=== PATIENT | female | born 1945 | race African-American/Black ===

== ENCOUNTER 2023-10-26 12:59 | Inpatient (IN) | payer MEDICARE, MEDICAID ==
[~2023-10-26] VITALS: Ht 157.5 cm; Wt 82.3 kg
[2023-10-26] MEDS: SODIUM CHLORIDE 0.9% 500 ML IV ONE (13:15)
[2023-10-26 17:26] LABS: Basophils # (auto) 0 10 ^3/uL (0-0.2); Eosinophils # (auto) 0 10 ^3/uL (0-0.8); Hemoglobin 10.6 g/dL (12.2-16.2); Monocytes # (auto) 0.2 10 ^3/uL (0-1.3); Neutrophils # (auto) 0.6 10 ^3/uL (1.6-8.6)
[2023-10-26 17:28] LABS: Basophils % (auto) 1.6 % (0.0-2.0); Eosinophils % (auto) 1.1 % (0.0-7.0); Hematocrit 31.5 % (36.0-46.0); Mean Corpuscular Hgb Conc. 33.7 g/dL (32.0-36.0); Mean Corpuscular Volume 106.6 fL (80.0-100.0); Monocytes % (auto) 10.9 % (0.0-12.0); Neutrophils % (auto) 32.4 % (37.0-80.0); Nucleated Red Blood Cells % 0.3 %; Platelet Count (auto) 101 10^3/uL (140-450); Red Blood Cells 2.96 10^6/uL (4.0-5.20); Red Cell Distribution Width 16.2 % (11.8-14.3); White Blood Cell 1.9 10^3/uL (4.4-10.8)
[2023-10-26 17:43] LABS: Alanine Aminotransferase 50 U/L (7-40); Albumin 4.3 g/dL (3.2-4.8); Alkaline Phosphatase 81 U/L (46-116); Anion Gap 9 (5-15); Aspartate Aminotransferase 44 U/L (13-40); BUN/Creatinine Ratio 10.1 (10.0-20.0); Blood Urea Nitrogen 8 mg/dL (9-23); Calcium 9.4 mg/dL (8.7-10.4); Carbon Dioxide 26 mmol/L (20-30); Chloride 108 mmol/L (98-107); Glucose 96 mg/dL (74-106); Potassium 3.5 mmol/L (3.5-5.1); Sodium 143 mmol/L (136-145)
[2023-10-26 17:44] LABS: Bilirubin, Total 0.9 mg/dL (0.2-1.0); Total Protein 6.8 g/dL (5.7-8.2)
[2023-10-26 18:19] VITALS: PULSE 80; RESP 14; O2SAT 99
[2023-10-26] MEDS: HYDROcodone-ACET 5/325MG TAB PO ONE (19:00)
[2023-10-26] MEDS: fentaNYL CITRATE 100 MCG/2 ML VL IV ONE (19:00)
[2023-10-26 19:10] VITALS: PULSE 76; RESP 19; O2SAT 92
[2023-10-26] MEDS: MORPHINE SULFATE INJ 2 MG/ml SYRG IV ONE (21:00)
[2023-10-26] MEDS: LACTATED RINGER'S 1,000 ML IV ONE (22:00)
[2023-10-26] MEDS ORDERED: ACETAMINOPHEN 325 MG TAB PO PRN (22:00)
[2023-10-26] MEDS ORDERED: DOCUSATE SOD 100 MG CAP PO PRN (22:00)
[2023-10-26] MEDS ORDERED: HYDROcodone-ACET 5/325MG TAB PO PRN (22:00)
[2023-10-26] MEDS ORDERED: HYDROmorphone HCL 2 MG/ML VL/or syr IV PRN (22:00)
[2023-10-26] MEDS: TAMSULOSIN HYDROCHLORIDE 0.4 MG CAP PO SCH (22:00)
[2023-10-26] MEDS: SODIUM CHLOR 0.9% PF (SALINE LOCK) 10ML VIAL/SYR IV SCH (22:00)
[2023-10-26 23:13] LABS: % Iron Saturation 38.5 % (15-50)
[2023-10-26 23:15] LABS: Ferritin 64.1 ng/mL (10-291)
[2023-10-27 04:15] LABS: Platelet Count (auto) 91 10^3/uL (140-450); White Blood Cell 2.1 10^3/uL (4.4-10.8)
[2023-10-27 04:18] LABS: Hemoglobin 10.7 g/dL (12.2-16.2); Mean Corpuscular Hemoglobin 36.4 pg (28.0-32.0); Mean Corpuscular Hgb Conc. 34.5 g/dL (32.0-36.0); Mean Corpuscular Volume 105.6 fL (80.0-100.0); Red Blood Cells 2.94 10^6/uL (4.0-5.20); Red Cell Distribution Width 15.9 % (11.8-14.3)
[2023-10-27 04:29] LABS: Band Neutrophils % (manual) 0; Basophils % (manual) 0 (0.0-2.0); Blast Cells 0; Eosinophils % (manual) 0 (0-7); Metamyelocytes % 0; Myelocytes % 0; Promyelocytes % 0; Reactive Lymphocytes 0
[2023-10-27 04:42] LABS: Alanine Aminotransferase 42 U/L (7-40); Alkaline Phosphatase 75 U/L (46-116); Anion Gap 9 (5-15); Aspartate Aminotransferase 40 U/L (13-40); Bilirubin, Total 1.1 mg/dL (0.2-1.0); Blood Urea Nitrogen 6 mg/dL (9-23); Calcium 9.4 mg/dL (8.7-10.4); Carbon Dioxide 25 mmol/L (20-30); Chloride 110 mmol/L (98-107); Glucose 88 mg/dL (74-106); Potassium 3.4 mmol/L (3.5-5.1); Sodium 144 mmol/L (136-145); Total Protein 6.6 g/dL (5.7-8.2)
[2023-10-27] MEDS: traMADol HCL 50 MG TAB PO ONE (05:15)
[2023-10-27 05:56] LABS: Large Platelets FEW; Lymphocytes % (manual) 61 (10.0-50.0); Macrocytosis Moderate; Monocytes % (manual) 11 (0-12); Platelet Estimate Decreased
[2023-10-27 05:57] LABS: Anisocytosis Slight; Ovalocytes FEW
[2023-10-27 07:30] VITALS: PULSE 60; RESP 16; O2SAT 98
[2023-10-27] MEDS: MORPHINE SULFATE INJ 2 MG/ml SYRG IV ONE (08:00)
[2023-10-27] MEDS ORDERED: KETOROLAC TROMETH 30 MG/ML 1ML VIAL IV PRN (09:00)
[2023-10-27] MEDS: LACTATED RINGER'S 1,000 ML IV SCH ×2 (09:15→19:00)
[2023-10-27] MEDS: ENOXAPARIN SOD 40 MG/0.4 ML SYRINGE SC SCH (10:00)
[2023-10-27] MEDS: LISINOPRIL 5 MG TAB PO SCH (10:00)
[2023-10-27] MEDS: POTASSIUM CHL 20 Meq TABLET PO SCH (10:00)
[2023-10-27] MEDS: oxyCODONE HCL 5MG TAB PO PRN (13:05)
[2023-10-27 13:46] LABS: Urine Bacteria None Seen /hpf (None Seen)
[2023-10-27 14:18] LABS: Urine Blood Negative /uL (Negative); Urine Clarity Clear (Clear); Urine Color Light-Yellow (Yellow); Urine Protein, UAD Negative (Negative); Urine Specific Gravity 1.013 (1.001-1.035); Urine Urobilinogen 2 mg/dL (Negative); Urine WBC <1 /hpf (0 - 5); Urine pH 7.5 (5.0-9.0)
[2023-10-27 14:49] LABS: Amphetamine Screen, Urine Neg (NEGATIVE); Barbiturate Scree,Urine Neg (NEGATIVE); Benzodiazephine Screen, Urine Neg (NEGATIVE)
[2023-10-27 14:50] LABS: Cocaine Screen, Urine Neg (NEGATIVE)
[2023-10-27 14:51] LABS: Cannabinoid Screen, Urine Neg (NEGATIVE); Opiate Scree,Urine Neg (NEGATIVE); Phencyclidine Screen, Urine Neg (NEGATIVE)
[2023-10-27 15:16] LABS: Rapid Influenza A Negative (Negative); Rapid Influenza B Negative (Negative)
[2023-10-27 15:17] LABS: COVID19 ANTIGEN SOFIA FIA NEGATIVE (NEGATIVE)
[2023-10-27 15:28] LABS: Folate (Folic Acid) 13.96 ng/mL (>5.38)
[2023-10-27 17:00] VITALS: BP 117/70; PULSE 60; RESP 16; TEMP 98.6; O2SAT 98
[2023-10-27 17:06] VITALS: BP 133/59; PULSE 68; RESP 16; TEMP 97.7; O2SAT 95
[2023-10-27] MEDS: ERGOCALCIFEROL 50,000 UNIT(1.25MG) CAP PO SCH (20:30)
[2023-10-27] MEDS: TAMSULOSIN HYDROCHLORIDE 0.4 MG CAP PO ONE (21:00)
[2023-10-27 22:00] VITALS: BP 133/49; PULSE 69; RESP 18; TEMP 99.2; O2SAT 98
[2023-10-27] MEDS: PANTOPRAZOLE 40 MG/10 ML VIAL INJ IV SCH (22:00)
[2023-10-28 01:00] VITALS: BP 107/39; PULSE 82; RESP 17; TEMP 99; O2SAT 95
[2023-10-28 05:00] VITALS: BP 113/47; PULSE 78; RESP 19; TEMP 97; O2SAT 98
[2023-10-28 07:23] LABS: Red Cell Distribution Width 15.7 % (11.8-14.3)
[2023-10-28 07:26] LABS: Hemoglobin 10.7 g/dL (12.2-16.2); Mean Corpuscular Hemoglobin 36.1 pg (28.0-32.0); Mean Corpuscular Hgb Conc. 34.4 g/dL (32.0-36.0); Mean Corpuscular Volume 104.7 fL (80.0-100.0); Platelet Count (auto) 89 10^3/uL (140-450); Red Blood Cells 2.96 10^6/uL (4.0-5.20); White Blood Cell 2.1 10^3/uL (4.4-10.8)
[2023-10-28 07:29] LABS: Band Neutrophils % (manual) 0; Basophils % (manual) 0 (0.0-2.0); Blast Cells 0; Eosinophils % (manual) 0 (0-7); Metamyelocytes % 0; Myelocytes % 0; Promyelocytes % 0; Reactive Lymphocytes 0
[2023-10-28 07:35] LABS: INR 1.16 (0.9-1.15); Partial Thromboplastin Time 30.5 SEC (24.5-34.5); Prothrombin Time 12.2 sec (9.3-11.8)
[2023-10-28 07:36] LABS: Alanine Aminotransferase 35 U/L (7-40); Albumin 3.9 g/dL (3.2-4.8); Alkaline Phosphatase 72 U/L (46-116); Anion Gap 6 (5-15); Aspartate Aminotransferase 35 U/L (13-40); BUN/Creatinine Ratio 11.1 (10.0-20.0); Bilirubin, Total 0.9 mg/dL (0.2-1.0); Blood Urea Nitrogen 9 mg/dL (9-23); Calcium 9.2 mg/dL (8.7-10.4); Carbon Dioxide 26 mmol/L (20-30); Chloride 108 mmol/L (98-107); Glucose 99 mg/dL (74-106); Potassium 3.3 mmol/L (3.5-5.1); Sodium 140 mmol/L (136-145); Total Protein 6.4 g/dL (5.7-8.2); Uric Acid 6.6 mg/dL (3.1-7.8)
[2023-10-28 08:06] LABS: Lymphocytes % (manual) 64 (10.0-50.0); Monocytes % (manual) 7 (0-12)
[2023-10-28 08:07] LABS: Anisocytosis Slight; Macrocytosis Slight; Platelet Estimate Decreased
[2023-10-28] MEDS: CYANOCOBALAMIN 500 MCG TAB PO SCH (10:54)
[2023-10-28] MEDS: POTASSIUM CHL 20 Meq TABLET PO ONE (10:54)
[2023-10-28 12:53] VITALS: BP 119/77; PULSE 73; RESP 19; TEMP 97.8; O2SAT 100
[2023-10-28 17:26] VITALS: BP 110/51; PULSE 76; RESP 19; TEMP 97.9; O2SAT 93
[2023-10-28] MEDS: TAMSULOSIN HYDROCHLORIDE 0.4 MG CAP PO SCH (18:20)
[2023-10-28 20:00] VITALS: RESP 18
[2023-10-28] MEDS: ONDANSETRON HCL 4 MG/2 ML VIAL IV PRN (20:12)
[2023-10-28] MEDS: oxyCODONE HCL 5MG TAB PO PRN (20:14)
[2023-10-28 22:00] VITALS: BP 116/60; PULSE 82; RESP 15; TEMP 99.2; O2SAT 100
[2023-10-29] VITALS (7 sets, daily range): BP systolic 92–148; BP diastolic 49–98; PULSE 65–104; RESP 16–19; TEMP 97.5–98.7; O2SAT 93–100
[2023-10-29 10:07] LABS: Hemoglobin 10.5 g/dL (12.2-16.2); Mean Corpuscular Hemoglobin 36.3 pg (28.0-32.0)
[2023-10-29 10:11] LABS: Hematocrit 30.9 % (36.0-46.0); Mean Corpuscular Hgb Conc. 34.1 g/dL (32.0-36.0); Mean Corpuscular Volume 106.5 fL (80.0-100.0); Platelet Count (auto) 77 10^3/uL (140-450); Red Cell Distribution Width 15.8 % (11.8-14.3)
[2023-10-29 10:23] LABS: Alanine Aminotransferase 36 U/L (7-40); Albumin 3.6 g/dL (3.2-4.8); Alkaline Phosphatase 69 U/L (46-116); Anion Gap 5 (5-15); Aspartate Aminotransferase 31 U/L (13-40); BUN/Creatinine Ratio 11.8 (10.0-20.0); Blood Urea Nitrogen 9 mg/dL (9-23); Calcium 9.1 mg/dL (8.7-10.4); Carbon Dioxide 29 mmol/L (20-30); Chloride 107 mmol/L (98-107); Glucose 89 mg/dL (74-106); Potassium 3.7 mmol/L (3.5-5.1); Sodium 141 mmol/L (136-145)
[2023-10-29 10:24] LABS: Bilirubin, Total 0.7 mg/dL (0.2-1.0); Total Protein 5.7 g/dL (5.7-8.2)
[2023-10-29 10:26] LABS: Band Neutrophils % (manual) 0; Basophils % (manual) 0 (0.0-2.0); Blast Cells 0; Metamyelocytes % 0; Myelocytes % 0; Promyelocytes % 0; Reactive Lymphocytes 0
[2023-10-29 13:08] LABS: Eosinophils % (manual) 4 (0-7); Lymphocytes % (manual) 56 (10.0-50.0); Macrocytosis Moderate; Monocytes % (manual) 13 (0-12); Platelet Estimate Decreased
[2023-10-29] MEDS ORDERED: ERGO1CAP23 PO (14:44)
[2023-10-29] MEDS ORDERED: LISI-275 PO (14:44)
[2023-10-29] MEDS ORDERED: TAMS-35 PO (14:44)
[2023-10-29] MEDS ORDERED: CYAN500T3 PO (14:44)
[2023-10-29 16:06] LABS: Anti-Centromere B Antibody <0.2 AI (0.0-0.9); Anti-Jo-1 Antibody <0.2 AI (0.0-0.9); Anti-dsDNA Antibody <1 IU/mL (0-9); Antichromatin Antibody <0.2 AI (0.0-0.9); Antiscleroderma-70 Antibody <0.2 AI (0.0-0.9); RNP Antibody 1.3 AI (0.0-0.9); Sjogren's Anti-SS-A Antibody <0.2 AI (0.0-0.9); Sjogren's Anti-SS-B Antibody <0.2 AI (0.0-0.9); Smith Antibody <0.2 AI (0.0-0.9)
[2023-10-30] VITALS (7 sets, daily range): BP systolic 102–155; BP diastolic 52–73; PULSE 73–89; RESP 16–21; TEMP 97.6–98.6; O2SAT 94–99
[2023-10-30 04:06] LABS: CMV IgG Antibody <0.60 U/mL (0.00-0.59); CMV IgM Antibody <30.0 AU/mL (0.0-29.9)
[2023-10-30 07:46] LABS: Basophils # (auto) 0 10 ^3/uL (0-0.2); Eosinophils # (auto) 0.1 10 ^3/uL (0-0.8); Lymphocytes # (auto) 1.2 10 ^3/uL (0.4-5.4); Mean Corpuscular Volume 107.3 fL (80.0-100.0); Monocytes # (auto) 0.2 10 ^3/uL (0-1.3); Neutrophils # (auto) 0.9 10 ^3/uL (1.6-8.6); White Blood Cell 2.4 10^3/uL (4.4-10.8)
[2023-10-30 07:50] LABS: Basophils % (auto) 0.9 % (0.0-2.0); Eosinophils % (auto) 3.3 % (0.0-7.0); Hematocrit 31.1 % (36.0-46.0); Hemoglobin 10.6 g/dL (12.2-16.2); Lymphocytes % (auto) 50.6 % (10.0-50.0); Mean Corpuscular Hemoglobin 36.4 pg (28.0-32.0); Mean Corpuscular Hgb Conc. 33.9 g/dL (32.0-36.0); Monocytes % (auto) 8.5 % (0.0-12.0); Neutrophils % (auto) 36.7 % (37.0-80.0); Nucleated Red Blood Cells % 0.3 %; Platelet Count (auto) 80 10^3/uL (140-450); Red Cell Distribution Width 16.2 % (11.8-14.3)
[2023-10-30 07:53] LABS: Alanine Aminotransferase 35 U/L (7-40); Albumin 3.7 g/dL (3.2-4.8); Alkaline Phosphatase 73 U/L (46-116); Anion Gap 5 (5-15); Aspartate Aminotransferase 34 U/L (13-40); BUN/Creatinine Ratio 11.1 (10.0-20.0); Blood Urea Nitrogen 8 mg/dL (9-23); Calcium 9.4 mg/dL (8.7-10.4); Carbon Dioxide 27 mmol/L (20-30); Chloride 107 mmol/L (98-107); Glucose 107 mg/dL (74-106); Potassium 3.9 mmol/L (3.5-5.1); Sodium 139 mmol/L (136-145)
[2023-10-30 07:54] LABS: Bilirubin, Total 0.7 mg/dL (0.2-1.0); Total Protein 6.1 g/dL (5.7-8.2)
[2023-10-30 09:10] LABS: Hepatitis B Core Total AB Negative (Negative)
[2023-10-30 09:29] LABS: Hepatitis A Total Antibody Negative (Negative); Hepatitis B Surface Antibody Negative (Negative); Hepatitis B Surface Antigen Negative (Negative); Hepatitis C Antibody Negative (Negative)
[2023-10-31 01:00] VITALS: BP 148/62; PULSE 75; RESP 18; TEMP 98.4
[2023-10-31 05:00] VITALS: BP 120/73; PULSE 72; RESP 18; TEMP 98.1
[2023-10-31 07:36] LABS: Basophils # (auto) 0 10 ^3/uL (0-0.2); Eosinophils # (auto) 0.1 10 ^3/uL (0-0.8); Eosinophils % (auto) 3.2 % (0.0-7.0); Hematocrit 31.4 % (36.0-46.0); Hemoglobin 10.6 g/dL (12.2-16.2); Lymphocytes # (auto) 1.2 10 ^3/uL (0.4-5.4); Lymphocytes % (auto) 41.6 % (10.0-50.0); Mean Corpuscular Hemoglobin 35.7 pg (28.0-32.0); Mean Corpuscular Hgb Conc. 33.7 g/dL (32.0-36.0); Mean Corpuscular Volume 106.1 fL (80.0-100.0); Monocytes # (auto) 0.2 10 ^3/uL (0-1.3); Monocytes % (auto) 8.1 % (0.0-12.0); Neutrophils # (auto) 1.3 10 ^3/uL (1.6-8.6); Neutrophils % (auto) 46.1 % (37.0-80.0); Nucleated Red Blood Cells % 0.3 %; Red Blood Cells 2.96 10^6/uL (4.0-5.20); Red Cell Distribution Width 16.3 % (11.8-14.3); White Blood Cell 2.9 10^3/uL (4.4-10.8)
[2023-10-31 07:37] LABS: Platelet Count (auto) 79 10^3/uL (140-450)
[2023-10-31 07:46] LABS: Alanine Aminotransferase 43 U/L (7-40); Alkaline Phosphatase 76 U/L (46-116); Anion Gap 6 (5-15); Aspartate Aminotransferase 37 U/L (13-40); Blood Urea Nitrogen 12 mg/dL (9-23); Calcium 9.6 mg/dL (8.7-10.4); Carbon Dioxide 28 mmol/L (20-30); Chloride 106 mmol/L (98-107); Glucose 93 mg/dL (74-106); Potassium 4.1 mmol/L (3.5-5.1); Sodium 140 mmol/L (136-145)
[2023-10-31 07:47] LABS: Bilirubin, Total 0.8 mg/dL (0.2-1.0); Total Protein 6.3 g/dL (5.7-8.2)
[2023-10-31 08:00] VITALS: PULSE 79; RESP 18; O2SAT 94
[2023-10-31 09:00] VITALS: BP 136/44; PULSE 73; RESP 17; TEMP 98.2; O2SAT 98
[2023-10-31 11:22] LABS: Urine Bacteria None Seen /hpf (None Seen)
[2023-10-31 11:35] LABS: Urine Blood Negative /uL (Negative); Urine Clarity Clear (Clear); Urine Color Light-Yellow (Yellow); Urine Protein, UAD TRACE (Negative); Urine Specific Gravity 1.019 (1.001-1.035); Urine Urobilinogen Normal (Negative); Urine WBC 10 /hpf (0 - 5)
[2023-10-31 13:00] VITALS: BP 141/63; PULSE 72; RESP 17; TEMP 98.7; O2SAT 98
[2023-10-31 17:00] VITALS: BP 119/55; PULSE 79; RESP 17; TEMP 98.6; O2SAT 98
[2023-11-01 08:18] VITALS: BP 131/56; PULSE 74; RESP 18; TEMP 98.3; O2SAT 96
[2023-11-01] MEDS: PHENAZOPYRIDINE HCL 100 MG TAB PO ONE (13:16)
[2023-11-01 14:56] LABS: Urine Bacteria None Seen /hpf (None Seen)
[2023-11-01 15:13] LABS: Urine Blood 2+ /uL (Negative); Urine Clarity Turbid (Clear); Urine Color Colorless (Yellow); Urine Protein, UAD 1+ (Negative); Urine Specific Gravity 1.027 (1.001-1.035); Urine Urobilinogen Normal (Negative); Urine WBC 681 /hpf (0 - 5); Urine pH 6.5 (5.0-9.0)
[2023-11-01] MEDS: PHENAZOPYRIDINE HCL 100 MG TAB PO SCH (17:40)
[2023-11-01 17:51] VITALS: BP 124/46; PULSE 74; RESP 16; TEMP 98.7; O2SAT 94
[2023-11-01 21:00] VITALS: BP 136/61; PULSE 78; RESP 20; TEMP 97.6; O2SAT 99
[2023-11-02 05:00] VITALS: BP 120/51; PULSE 72; RESP 18; TEMP 97.5; O2SAT 99
[2023-11-02 08:30] VITALS: BP 114/44; PULSE 67; RESP 20; TEMP 98; O2SAT 97
[2023-11-02 12:51] VITALS: BP 128/55; PULSE 71; RESP 20; TEMP 98.6; O2SAT 95
[2023-11-02] MEDS: THROAT LOZENGES(CEPASTAT) MT PRN (13:10)
[2023-11-02 21:00] VITALS: BP 131/68; PULSE 73; RESP 19; TEMP 99; O2SAT 95
[2023-11-03 01:00] VITALS: BP 132/60; PULSE 71; RESP 17; TEMP 97.8; O2SAT 93
[2023-11-03 05:00] VITALS: BP 114/63; PULSE 74; RESP 16; O2SAT 95
[2023-11-03 08:00] VITALS: PULSE 76; RESP 20; O2SAT 96
[2023-11-03] MEDS: diphenhdrAMINE HCL 50 MG/1 ML VL IV PRN (10:07)
[2023-11-03 12:14] VITALS: BP 114/78; PULSE 69; RESP 14; TEMP 98.1; O2SAT 100
[2023-11-03 12:30] VITALS: BP 114/48; PULSE 69; RESP 14; TEMP 98.1; O2SAT 100
[2023-11-03] MEDS ORDERED: CLINIMIX PER PHARMACY 0 ML IV SCH (13:15)
[2023-11-03] MEDS: POTASSIUM EFFERVESENT TAB 25 MEQ PO SCH (13:42)
== END 2023-11-03 14:10 | DRG 694 ==
LOC: EDBD 12:59 → ER 12:59 → OVERFLOW 21:57 → WEST WING 10-27 16:46
PROVIDERS: ADMIT Internal Medicine Pulmonary Disease; ATTEND Internal Medicine Pulmonary Disease
PROC: 05H933Z Insertion of Infusion Device into Right Brachial Vein, Percutaneous Approach (ICD-10-PCS; principal; 2023-10-26)
PROC: B54MZZA Ultrasonography of Right Upper Extremity Veins, Guidance (ICD-10-PCS; 2023-10-26)
DX: N20.0 Calculus of kidney (principal); D61.818 Other pancytopenia; K92.1 Melena; I50.32 Chronic diastolic (congestive) heart failure; D61.09 Other constitutional aplastic anemia; K76.89 Other specified diseases of liver; N28.1 Cyst of kidney, acquired; D53.9 Nutritional anemia, unspecified; Z20.822 Contact with and (suspected) exposure to COVID-19; R79.89 Other specified abnormal findings of blood chemistry; I25.10 Atherosclerotic heart disease of native coronary artery without angina pectoris; I11.0 Hypertensive heart disease with heart failure; E87.6 Hypokalemia; E55.9 Vitamin D deficiency, unspecified; K64.8 Other hemorrhoids; Z88.6 Allergy status to analgesic agent; Z91.148 Patient's other noncompliance with medication regimen for other reason; E53.8 Deficiency of other specified B group vitamins
CPT/HCPCS: 36415; 71045; 74176; 76705; 76775; 80053; 80307; 81001; 82270; 82306; 82607; 82728; 82746; 83036; 83516; 83540; 83550; 83615; 84443; 84550; 85007; 85025; 85027; 85045; 85610; 85730; 86225; 86235; 86644; 86645; 86703; 86704; 86706; 86708; 86803; 87340; 87426; 87804; 93306; 96361; 96374; 96376; 97110; 97116; 97163; 97530; G0378; J2405; J2470

== ENCOUNTER 2024-04-11 18:44 | Emergency (ER) | payer MEDICARE, OTHER ==
[~2024-04-11] VITALS: Ht 157.5 cm; Wt 70.0 kg
--- NOTE | 2024-04-11 19:24 | ED.PDOC ---
General HPI Comments 78 y.o female with PMHx of CHF, HTN, presents to the ED via EMS for a chief complaint of hematuria associated with dysuria, right flank pain, nausea and vomiting that started today while in the bus. Patient reports flank pain is constant and tender on palpation. Patient mentions having one syncopal episode while in the bus due to pain but denies any falls or head injuries. Patient denies fever, chills, chest pain, SOB, back pain. Chief Complaint: Urinary Time Seen by MD: 19:03 Primary Care Provider: SHILPI Reviewed notes: Nurses Notes, [employer] Repair Technician Notes, Medications, Allergies Allergies: Coded Allergies: Acetaminophen (Unverified Allergy, Unknown, 10/26/23) Enoxaparin (Unverified Allergy, Unknown, 10/28/23) Morphine (Verified Allergy, Unknown, 04/12/24) NSAIDs (Unverified Allergy, Unknown, 10/26/23) Tramadol (Verified Allergy, Unknown, 04/12/24) Information Source: Patient, Emergency Med Personnel Mode of Arrival: EMS Severity: Moderate Timing: Hours Duration: Since onset Onset: Spontaneous Symptoms: Dysuria, Hematuria History of: None Location: (R) Flank associated signs and symptoms: Abdominal Pain, Nausea, Vomiting, Flank Pain, Dysuria, Hematuria Past Medical History PAST MEDICAL HISTORY: CHF, HTN Surgical History: Hernia Repair MANAGER OUTREACH History: No Pertinent MANAGER OUTREACH History Family History Family History: Reviewed,noncontributory to illness Social History Smoker: Non-Smoker Alcohol: Denies ETOH Use Drugs: Denies Drug Use Lives In: Home Constitutional: denies: chills, diaphoresis, fatigue, fever, malaise, sweats, weakness, others EENTM: denies: blurred vision, double vision, ear bleeding, ear discharge, ear drainage, ear pain, ear ringing, eye pain, eye redness, hearing loss, mouth pain, mouth swelling, nasal discharge, nose bleeding, nose congestion, nose pain, photophobia, tearing, throat pain, throat swelling, voice changes, others Respiratory: denies: cough, hemoptysis, orthopnea, SOB at rest, shortness of breath, SOB with excertion, stridor, wheezing, others Cardiovascular: denies: chest pain, dizzy spells, diaphoresis, Dyspnea on exertion, edema, irregular heart beat, left arm pain, lightheadedness, palpitations, PND, syncope, others Gastrointestinal: reports: nausea, vomiting; denies: abdomen distended, abdominal pain, blood streaked bowels, constipated, diarrhea, dysphagia, difficulty swallowing, hematemesis, melena, poor appetite, poor fluid intake, rectal bleeding, rectal pain, others Genitourinary: reports: burning, dysuria, flank pain, hematuria; denies: abnormal vagina bleeding, dyspareunia, frequency, incontinence, pain, , vagina discharge, urgency, others Neurological: denies: dizziness, fainting, headache, left sided numbness, left sided weakness, numbness, paresthesia, pre-existing deficit, right sided numbness, right sided weakness, seizure, speech problems, tingling, tremors, weakness, others Musculoskeletal: denies: back pain, gout, joint pain, joint swelling, muscle pain, muscle stiffness, neck pain, others Integumetry: denies: bruises, change in color, change in hair/nails, dryness, laceration, lesions, lumps, rash, wounds, others Allergic/Immunocompromised: denies: Difficulty Healing, Frequent Infections, Hives, Itching, others Hematologic/Lymphatic: denies: anemia, blood clots, easy bleeding, easy bruising, swollen glands, others Endocrine: denies: excessive hunger, excessive sweating, excessive thirst, excessive urination, flushing, intolerance to cold, intolerance to heat, une xplained weight gain, unexplained weight loss, others Psychiatric: denies: anxiety, bipolar disorder, depression, hopeless, panic disorder, schizophrenia, sleepless, suicidal, others All Other Systems: Reviewed and Negative Physical Exam General Appearance: No Apparent Distress, Normal HEENT: Normal ENT Inspection, Pharynx Normal, TMs Normal Neck: Full Range of Motion, Non-Tender, Normal, Normal Inspection Respiratory: Chest Non-Tender, Lungs Clear, No Accessory Muscle Use, No Respiratory Distress, Normal Breath Sounds Cardiovascular: No Edema, No JVD, No Murmur, No Gallop, Normal Peripheral Pul ses, Regular Rate/Rhythm Breast Exam: Deferred Gastrointestinal: RLQ, Tenderness (RLQ and right sided flank tenderness to palpation) Genitalia: Deferred Pelvic: Deferred Rectal: Deferred Extremities: No calf tenderness, Normal capillary refill, Normal inspection, Normal range of motion, Non-tender, No pedal edema Musculoskeletal : Apperance: Normal Neurologic: Alert, merchandising coordinator II-XII nml as Tested, No Motor Deficits, Normal Affect, Normal Mood, No Sensory Deficits Cerebellar Function: Normal Reflexes: Normal Skin: Dry, Normal Color, Warm Lymphatic: No Adenopathy Was a procedure done? Was a procedure done?: No Differential Diagnosis Kidney stone (Female): Hepatitis, Musculoskeletal pain, Pancreatitis, Pyelonephritis, Strain, Urolithiasis Urinary Problem (Female): Pyelonephritis, Urolithiasis, UTI, Vaginitis X-Ray, Labs, Meds, VS Vital Signs Date Time Temp Pulse Resp B/P (MAP) Pulse Ox O2 Delivery O2 Flow Rate FiO2 04/11/24 18:52 98.5 87 16 138/60 (86) 96 Lab Test 04/11/24 22:33 04/11/24 19:27 04/11/24 19:25 Range/Units Troponin I High Sensitivity 3 L 4 </=34 ng/L Urine Color Light-orange Yellow Urine Clarity Turbid H Clear Urine pH 5.5 5.0-9.0 Urine Specific [place] 1.026 1.001-1.035 Urine Protein 1+ H Negative Urine Ketones Negative Negative Urine Blood 3+ H Negative /uL Urine Nitrite Negative Negative Urine Bilirubin Negative Negative Urine Urobilinogen Normal Negative mg/dL Urine Leukocyte Esterase Negative Negative /uL Urine RBC 533 0 - 4 /hpf Urine Microscopic WBC 1 0-5 /HPF Urine Squamous Epithelial Cells Few <5 /hpf Urine Bacteria Few H None Seen /hpf Urine Glucose Normal Normal mg/dL White Blood Count 2.9 L 4.4-10.8 10^3/uL Red Blood Count 2.67 L 4.0-5.20 10^6/uL Hemoglobin 9.8 L 12.2-16.2 g/dL Hematocrit 28.9 L 36.0-46.0 % Mean Corpuscular Volume 108.4 H 80.0-100.0 fL Mean Corpuscular Hemoglobin 36.6 H 28.0-32.0 pg Mean Corpuscular Hemoglobin Concent 33.8 32.0-36.0 g/dL Red Cell Distribution Width 16.0 H 11.8-14.3 % Platelet Count 76 L 140-450 10^3/uL Mean Platelet Volume 7.9 6.9-10.8 fL Neutrophils (%) (Auto) 40.3 37.0-80.0 % Lymphocytes (%) (Auto) 46.7 10.0-50.0 % Monocytes (%) (Auto) 9.3 0.0-12.0 % Eosinophils (%) (Auto) 2.7 0.0-7.0 % Basophils (%) (Auto) 1.0 0.0-2.0 % Neutrophils # (Auto) 1.2 L 1.6-8.6 10 ^3/uL Lymphocytes # (Auto) 1.3 0.4-5.4 10 ^3/uL Monocytes # (Auto) 0.3 0-1.3 10 ^3/uL Eosinophils # (Auto) 0.1 0-0.8 10 ^3/uL Basophils # (Auto) 0 0-0.2 10 ^3/uL Nucleated Red Blood Cells 0.6 % Sodium Level 141 136-145 mmol/L Potassium Level 3.7 3.5-5.1 mmol/L Chloride Level 105 98-107 mmol/L Carbon Dioxide Level 30 20-31 mmol/L Anion Gap 6 5-15 Blood Urea Nitrogen 11 9-23 mg/dL Creatinine 0.81 0.550-1.02 mg/dL Glomerular Filtration Rate Calc 74 >90 mL/min BUN/Creatinine Ratio 13.6 10.0-20.0 Serum Glucose 109 H 74-106 mg/dL Lactic Acid Level 1.6 0.4-2.0 mmol/L Calcium Level 9.7 8.7-10.4 mg/dL Total Bilirubin 0.7 0.2-1.0 mg/dL Aspartate Amino Transferase (AST) 37 13-40 U/L Alanine Aminotransferase (ALT) 39 7-40 U/L Alkaline Phosphatase 77 46-116 U/L Total Protein 7.0 5.7-8.2 g/dL Albumin 4.6 3.2-4.8 g/dL Current Medications Medications (Trade) Dose Ordered Sig/Corwin Route Start Time Stop Time Status Last Admin Sodium Chloride 1,000 ml @ 1,000 mls/hr Q1H ONCE IV 04/11/24 23:15 04/12/24 00:14 DC 04/12/24 01:35 X-Ray, Labs, Meds, VS Comment CT Abd/Pelv IMPRESSION: Multiple bilateral nonobstructing renal stones measuring up to 8 mm. No hydronephrosis. Bilateral renal hypodensities measuring up to 3 cm which most likely represent cysts but are poorly characterized on this noncontrast evaluation. [id number] fecal retention throughout the colon. MDM: Patient with history as above presented with hematuria and flank pain. History obtained from patient and EMS. Patient was nontoxic, stable, afebrile, in wheelchair, mild distress. Exam as above. Labs reviewed. CBC showed leukocytopenia at 2.9. Anemia noted with hemoglobin 9.8 and hematocrit 28.9. CMP did not show any electrolyte abnormalities. Troponin x2 was negative. Lactic acid within normal limits. Urinalysis was positive for blood, otherwise no infection. Independently reviewed imaging. The abdomen/pelvis showed bilateral renal stones measuring up to 8 mm. Reviewed external records. All findings were discussed with the patient. Differential diagnosis considered. Overall presentation is consistent with ki dney stones. Low suspicion for urinary obstruction, sepsis, ACS. Patient was treated with Dilaudid and Zofran and IV fluids with improvement of symptoms. Patient will be admitted to the hospital due to large kidney stones. Patient will need urology consult and pain management. Disposition: Admit This medical document was created using the [employer] dictation system. Although this document has been carefully reviewed, there may still be some phonetic and typographical errors, which are due to imperfections of the software program, and do not reflect any compromise in the patient's medical care. Time of 1ST Reevaluation: 19:42 Reevaluation 1ST: Unchanged Time of 2ND Reevaluation: 00:28 Reevaluation 2ND: Improved Patient Education/Counseling: Diagnosis, Treatment, Prognosis Family Education/Counseling: No Family Present Departure 1 Departure Time of Disposition: 00:28 Impression: Primary Impression: Kidney stones Disposition: 06 HOME HEALTH CARE SERVICE Condition: Fair Discharged With: Self Comments I discussed the case with [facility] and they reviewed the CT findings which showed kidney stones in the kidney itself and there was no obstructive process to suggest that these were causing any pain. On re- evaluation the patient has no pain in her abdomen. Patient is not having pain at this time and taking fluids well by mouth. Shared decision making was discussed with the patient and she would prefer to return to her [place] [facility] care facility at this time. Critical Care Note Critical Care Time?: No Stability Stability form required: No Heart Score Heart Score: Heart Score Response (Comments) Value History N/A 0 EKG N/A 0 Age N/A 0 Risk Factors N/A 0 Troponin N/A 0 Total 0 I personally scribed for SOL HERNANDEZ MD ([facility]) on 04/11/24 at 19:42. Electronically submitted by Pushpa Ding ([facility]). MARISELA ALBRIGHT [facility] Apr 11, 2024 19:24 SOL HERNANDEZ MD Apr 11, 2024 19:42 WINSOME HELM MD Apr 12, 2024 05:48
[2024-04-11 19:53] LABS: Basophils # (auto) 0 10 ^3/uL (0-0.2); Hemoglobin 9.8 g/dL (12.2-16.2); Monocytes # (auto) 0.3 10 ^3/uL (0-1.3); White Blood Cell 2.9 10^3/uL (4.4-10.8)
[2024-04-11 19:54] LABS: Alanine Aminotransferase 39 U/L (7-40); Albumin 4.6 g/dL (3.2-4.8); Alkaline Phosphatase 77 U/L (46-116); Anion Gap 6 (5-15); Aspartate Aminotransferase 37 U/L (13-40); BUN/Creatinine Ratio 13.6 (10.0-20.0); Bilirubin, Total 0.7 mg/dL (0.2-1.0); Blood Urea Nitrogen 11 mg/dL (9-23); Calcium 9.7 mg/dL (8.7-10.4); Carbon Dioxide 30 mmol/L (20-31); Chloride 105 mmol/L (98-107); Potassium 3.7 mmol/L (3.5-5.1); Sodium 141 mmol/L (136-145)
[2024-04-11 19:55] LABS: Eosinophils # (auto) 0.1 10 ^3/uL (0-0.8); Eosinophils % (auto) 2.7 % (0.0-7.0); Glucose 109 mg/dL (74-106); Hematocrit 28.9 % (36.0-46.0); Lymphocytes # (auto) 1.3 10 ^3/uL (0.4-5.4); Lymphocytes % (auto) 46.7 % (10.0-50.0); Mean Corpuscular Hemoglobin 36.6 pg (28.0-32.0); Mean Corpuscular Hgb Conc. 33.8 g/dL (32.0-36.0); Mean Corpuscular Volume 108.4 fL (80.0-100.0); Monocytes % (auto) 9.3 % (0.0-12.0); Neutrophils # (auto) 1.2 10 ^3/uL (1.6-8.6); Neutrophils % (auto) 40.3 % (37.0-80.0); Nucleated Red Blood Cells % 0.6 %; Platelet Count (auto) 76 10^3/uL (140-450); Red Blood Cells 2.67 10^6/uL (4.0-5.20)
--- NOTE | 2024-04-11 23:53 | DVH ---
Exam: CT CT AB PEL WO CON-NO ORAL OR IV History: R/o kidney stone Comparison Study: None available at time of dictation. Technique: Multidetector spiral CT of the abdomen was performed from lung bases to pubic symphysis. I maging was performed without IV contrast. Axial, coronal and sagittal multiplanar reformats were obta ined from the axial data set by the technologist. Radiation Dose : 1. Abdomen/Pelvis: CTDIvol 8.72 mGy, DLP 457.25 mGy*cm. Findings: Evaluation of solid organs is limited due to lack of intravenous contrast use. Lung Bases: No acute or significant lung base finding. Normal heart size. No pleural or pericardial effusion. Liver: Multiple hypodensities scattered throughout the liver measuring up to 1.5 cm. Gallbladder and Biliary Tree: Unremarkable Spleen: Unremarkable Pancreas: The pancreas is grossly normal in appearance. Adrenal Glands: Unremarkable Kidneys: Multiple nonobstructing renal stones measuring up to 8 mm Multiple renal hypodensities measu ring up to 3 cm. Bladder: Grossly unremarkable for degree of distention. Bowel: The stomach is grossly normal in appearance. Ygbz-ha-uqxzbkvp fecal retention throughout the c olon.. The appendix is not visualized; however, no secondary findings of acute appendicitis identifie d. Ascites: Absent Lymphadenopathy: No mesenteric, retroperitoneal or periportal lymphadenopathy. Abdominal Wall and Mesentery: Unremarkable. Vasculature: The visualized abdominal aorta is normal in size and caliber. Evaluation of abdominal a nd pelvic vessels is limited due to lack of intravenous contrast. Pelvic Organs: Hysterectomy. Musculoskeletal: No aggressive focal bony lesions, acute fractures or dislocation. IMPRESSION: Multiple bilateral nonobstructing renal stones measuring up to 8 mm. No hydronephrosis. Bilateral toya al hypodensities measuring up to 3 cm which most likely represent cysts but are poorly characterized on this noncontrast evaluation. Irbn-go-ovsdqjgh fecal retention throughout the colon.
[2024-04-12 00:35] LABS: Urine Bacteria FEW /hpf (None Seen); Urine Blood 3+ /uL (Negative); Urine Clarity Turbid (Clear); Urine Color Light-Orange (Yellow); Urine Protein, UAD 1+ (Negative); Urine Specific Gravity 1.026 (1.001-1.035); Urine Squamous Epithelial Cell FEW /hpf (<5); Urine Urobilinogen Normal (Negative); Urine WBC 1 /HPF (0-5); Urine pH 5.5 (5.0-9.0)
[2024-04-12] MEDS ORDERED: MORPHINE SULFATE INJ 2 MG/ml SYRG IV PRN (01:00)
[2024-04-12] MEDS ORDERED: traMADol HCL 50 MG TAB PO PRN (01:00)
[2024-04-12] MEDS ORDERED: ONDANSETRON HCL 4 MG/2 ML VIAL IV PRN (01:00)
[2024-04-12] MEDS: MORPHINE SULFATE 4 MG/ML SYR/VIAL IM ONE (01:34)
[2024-04-12] MEDS: SODIUM CHLORIDE 0.9% 1,000 ML IV ONE (01:35)
[2024-04-12] MEDS: ONDANSETRON ODT 4 MG TAB PO ONE (03:09)
[2024-04-12 03:35] VITALS: BP 154/61; PULSE 90; RESP 19; TEMP 98.4; O2SAT 94
[2024-04-12] MEDS ORDERED: HYDROmorphone HCL 2 MG/ML VL/or syr IV ONE (04:30)
--- NOTE | 2024-04-12 04:52 | DVHHP2 ---
History of Present Illness Reason for Visit: Hematuria History of Present Illness 78-year-old female presents for evaluation of hematuria. Patient reports a one day history of noticing bloody urine. She states also developing bilateral flank pain with associated nausea and vomiting. Reports having sharp excruciating pain to bilateral flank. She does have a history of kidney stones. Patient also reports intermittent chills. No other acute complaints reported. Past Medical History Hypertension and kidney stones Past Surgical History Hernia repair and heart surgery Family History Noncontributory Smoke: No ALCOHOL: none Drugs: None Lives: with Family Review of Systems Review of Systems Review of systems are currently negative otherwise addressed in HPI. Allergies: Coded Allergies: Acetaminophen (Unverified Allergy, Unknown, 10/26/23) Enoxaparin (Unverified Allergy, Unknown, 10/28/23) Morphine (Verified Allergy, Unknown, 04/12/24) NSAIDs (Unverified Allergy, Unknown, 10/26/23) Tramadol (Verified Allergy, Unknown, 04/12/24) Medications Current Medications Medications Dose Ordered Sig/Corwin Route Start Time Stop Time Status Last Admin Dose Admin Lisinopril 10 mg DAILY PO 04/12/24 10:00 Ceftriaxone Sodium 50 ml @ 100 mls/hr DAILY@09 IV 04/12/24 09:00 Tramadol HCl 50 mg Q4HP PRN PO 04/12/24 01:00 Ondansetron HCl 4 mg Q4HP PRN IV 04/12/24 01:00 UNV Morphine Sulfate 2 mg Q4HPRN PRN IV 04/12/24 01:00 Exam Vital Signs Vital Signs Date Time Temp Pulse Resp B/P (MAP) Pulse Ox O2 Delivery O2 Flow Rate FiO2 04/12/24 03:35 90 19 94 Room Air* 0 21 04/12/24 03:35 98.4 154/61 (92) 98.4 Exam Gen: 78-year-old female in mild distress. Skin: Warm, dry, normal color and texture, no rash. HEENT: Normocephalic atraumatic, mucous membranes moist and pink. Neck: Cervical and supraclavicular nodes normal without enlargement, trachea is midline, thyroid gland is normal without masses. Pulmonary: Clear to auscultation and percussion bilaterally. Cardiac: Regular rate and rhythm. No murmur Abdomen: Soft, bilateral flank pain, nondistended, bowel sounds present all 4 quadrants, no guarding, no rigidity, no organomegaly. Extremities: No cyanosis, clubbing, no edema Neuro: Cranial nerves II through XII grossly intact, normal affect and speech, no focal motor deficits. Labs/Xrays ORDERING PHYSICIAN: MARISELA ALBRIGHT PROCEDURE(s): ABPL - CT AB PEL WO CON-NO ORAL OR IV REASON: R/o kidney stone ORDER NUMBER(s): [id number], ACCESSION NUMBER(s): [id number] Exam: CT CT AB PEL WO CON-NO ORAL OR IV History: R/o kidney stone Comparison Study: None available at time of dictation. Technique: Multidetector spiral CT of the abdomen was performed from lung bases to pubic symphysis. Imaging was performed without IV contrast. Axial, coronal and sagittal multiplanar reformats were obtained from the axial data set by the technologist. Radiation Dose : 1. Abdomen/Pelvis: CTDIvol 8.72 mGy, DLP 457.25 mGy*cm. Findings: Evaluation of solid organs is limited due to lack of intravenous contrast use. Lung Bases: No acute or significant lung base finding. Normal heart size. No pleural or pericardial effusion. Liver: Multiple hypodensities scattered throughout the liver measuring up to 1.5 cm. Gallbladder and Biliary Tree: Unremarkable Spleen: Unremarkable Pancreas: The pancreas is grossly normal in appearance. Adrenal Glands: Unremarkable Kidneys: Multiple nonobstructing renal stones measuring up to 8 mm Multiple renal hypodensities measuring up to 3 cm. Bladder: Grossly unremarkable for degree of distention. Bowel: The stomach is grossly normal in appearance. Cjmt-cq-lvjmthkn fecal retention throughout the colon.. The appendix is not visualized; however, no secondary findings of acute appendicitis identified. Ascites: Absent Lymphadenopathy: No mesenteric, retroperitoneal or periportal lymphadenopathy. Abdominal Wall and Mesentery: Unremarkable. Vasculature: The visualized abdominal aorta is normal in size and caliber. Evaluation of abdominal and pelvic vessels is limited due to lack of intravenous contrast. Pelvic Organs: Hysterectomy. Musculoskeletal: No aggressive focal bony lesions, acute fractures or dislocation. IMPRESSION: Multiple bilateral nonobstructing renal stones measuring up to 8 mm. No hydronephrosis. Bilateral renal hypodensities measuring up to 3 cm which most likely represent cysts but are poorly characterized on this noncontrast evaluation. Vyqy-tq-eeptzvzb fecal retention throughout the colon. Labs Test 04/11/24 22:33 04/11/24 19:27 04/11/24 19:25 Range/Units Troponin I High Sensitivity 3 L </=34 ng/L Urine Color Light-orange Yellow Urine Clarity Turbid H Clear Urine pH 5.5 5.0-9.0 Urine Specific [place] 1.026 1.001-1.035 Urine Protein 1+ H Negative Urine Ketones Negative Negative Urine Blood 3+ H Negative /uL Urine Nitrite Negative Negative Urine Bilirubin Negative Negative Urine Urobilinogen Normal Negative mg/dL Urine Leukocyte Esterase Negative Negative /uL Urine RBC 533 0 - 4 /hpf Urine Microscopic WBC 1 0-5 /HPF Urine Squamous Epithelial Cells Few <5 /hpf Urine Bacteria Few H None Seen /hpf Urine Glucose Normal Normal mg/dL White Blood Count 2.9 L 4.4-10.8 10^3/uL Red Blood Count 2.67 L 4.0-5.20 10^6/uL Hemoglobin 9.8 L 12.2-16.2 g/dL Hematocrit 28.9 L 36.0-46.0 % Mean Corpuscular Volume 108.4 H 80.0-100.0 fL Mean Corpuscular Hemoglobin 36.6 H 28.0-32.0 pg Mean Corpuscular Hemoglobin Concent 33.8 32.0-36.0 g/dL Red Cell Distribution Width 16.0 H 11.8-14.3 % Platelet Count 76 L 140-450 10^3/uL Mean Platelet Volume 7.9 6.9-10.8 fL Neutrophils (%) (Auto) 40.3 37.0-80.0 % Lymphocytes (%) (Auto) 46.7 10.0-50.0 % Monocytes (%) (Auto) 9.3 0.0-12.0 % Eosinophils (%) (Auto) 2.7 0.0-7.0 % Basophils (%) (Auto) 1.0 0.0-2.0 % Neutrophils # (Auto) 1.2 L 1.6-8.6 10 ^3/uL Lymphocytes # (Auto) 1.3 0.4-5.4 10 ^3/uL Monocytes # (Auto) 0.3 0-1.3 10 ^3/uL Eosinophils # (Auto) 0.1 0-0.8 10 ^3/uL Basophils # (Auto) 0 0-0.2 10 ^3/uL Nucleated Red Blood Cells 0.6 % Sodium Level 141 136-145 mmol/L Potassium Level 3.7 3.5-5.1 mmol/L Chloride Level 105 98-107 mmol/L Carbon Dioxide Level 30 20-31 mmol/L Anion Gap 6 5-15 Blood Urea Nitrogen 11 9-23 mg/dL Creatinine 0.81 0.550-1.02 mg/dL Glomerular Filtration Rate Calc 74 >90 mL/min BUN/Creatinine Ratio 13.6 10.0-20.0 Serum Glucose 109 H 74-106 mg/dL Lactic Acid Level 1.6 0.4-2.0 mmol/L Calcium Level 9.7 8.7-10.4 mg/dL Total Bilirubin 0.7 0.2-1.0 mg/dL Aspartate Amino Transferase (AST) 37 13-40 U/L Alanine Aminotransferase (ALT) 39 7-40 U/L Alkaline Phosphatase 77 46-116 U/L Total Protein 7.0 5.7-8.2 g/dL Albumin 4.6 3.2-4.8 g/dL Assessment/Plan Assessment/Plan Assessment Hematuria Mild anemia Nephrolithiasis Admit the patient to [facility] to to the hospitalist Urology consultation Pain management Transfuse if hemoglobin drops below seven Resume home medications Continue treatment per orders. Plan discussed with: Patient My Orders Orders - AMA PALMA AGACNP Procedure Category Date Status Time * Urology Consult CONS 04/12/24 Transmitted 00:50 Lisinopril Tablet PHA 04/12/24 In Process (Zestril Tablet) 10:00 Basic Metabolic Panel LAB 04/13/24 Verified 04:00 Type And Screen BBK 04/12/24 Logged 00:50 Ceftriaxone 1gm/50ml PHA 04/12/24 In Process D5w (Rocephin) 09:00 Tramadol Hcl (Ultram) PHA 04/12/24 In Process 01:00 Admit ADMIT 04/12/24 Transmitted 00:50 Ondansetron Hcl PHA 04/12/24 Pending (Zofran) 01:00 Complete Blood Count LAB 04/13/24 Verified 04:00 Cardiac DIET 04/12/24 Transmitted Diet-2gna,Lofat,Lochol Breakfast Condition: Stable LYNETTE 04/12/24 In Process 00:50 Bedrest With Bathroom LYNETTE 04/12/24 In Process Privileg 00:50 Morphine Sulfate PHA 04/12/24 In Process Injection 01:00 Diphenhdramine PHA 04/12/24 Logged Capsule (Benadryl 04:45 Date of Service: Apr 11, 2024 Billing Provider: AMA PALMA Common Visit Codes: [id number] INP/OBS CARE (MOD) AMA PALMA Apr 12, 2024 04:52
[2024-04-12] MEDS: diphenhdrAMINE HCL 50 MG/1 ML VL IV ONE (05:03)
[2024-04-12] MEDS: diphenhdrAMINE HCL 25 MG CAP PO ONE (05:04)
[2024-04-12] MEDS ORDERED: cefTRIAXone 1GM/50ML D5W 50 ML IV SCH (09:00)
[2024-04-12] MEDS ORDERED: LISINOPRIL 5 MG TAB PO SCH (10:00)
== END 2024-04-12 07:19 | disposition home or self-care (01) ==
LOC: EDBD 18:44 → ER 18:44 → EDUNIT# 18:44 → OVERFLOW 04-12 00:50 → UNDOADMIN 04-12 00:50 → OVERFLOW 04-12 07:19 → UNDODISIN 04-12 08:19
DX: N20.0 Calculus of kidney (principal); R31.9 Hematuria, unspecified; Z87.442 Personal history of urinary calculi; I10 Essential (primary) hypertension; I50.9 Heart failure, unspecified; Z98.890 Other specified postprocedural states; Z88.6 Allergy status to analgesic agent; Z88.8 Allergy status to other drugs, medicaments and biological substances
CPT/HCPCS: 36415; 74176; 80053; 81001; 83605; 84484; 85025; 96361; 96374; 99285; J1200; J2270; J7030; G0378